=== PATIENT | male | born 1950 | race Caucasian/White ===

== ENCOUNTER 2018-07-25 20:10 | Emergency (ER) | payer BC, OTHER ==
[~2018-07-25] VITALS: Ht 188 cm; Wt 90.7 kg
[2018-07-25 20:10] VITALS: BP_SYST 165
--- NOTE | 2018-07-25 20:10 | NUR ---
Patient to ER bed 1 to gown for evaluation. Side rails up.
--- NOTE | 2018-07-25 20:11 | NUR ---
Pt complains of not being able to urinate since 4pm today. Pt states he has an appointment for surgery of the prostate tomorrow but cannot urinate. Pt denies N/V or fever. No other injuries/complaints per patient or noted.
--- NOTE | 2018-07-25 20:15 | NUR ---
ER Dr. Gutierrez at bedside examining patient.
--- NOTE | 2018-07-25 20:28 | NUR ---
# 16 FR conklin catheter with use of sterile technique. Immediate return of 900 ml clear yellow urine noted. changed urinary bag to leg bag as per Dr. Gutierrez's verbal orders. Pt tolerated well.
[2018-07-25] MEDS ORDERED: DOXYCYCLINE HYCLATE 100 MG CAPSULE PO ONE (20:30)
[2018-07-25] MEDS ORDERED: DOXYCYCLINE HYCLATE 100 MG CAPSULE ONE (20:42)
[2018-07-25 20:55] VITALS: BP_SYST 138
--- NOTE | 2018-07-25 20:55 | NUR ---
Patient given written and verbal discharge instructions and verbalizes understanding. ER MD discussed with patient the results and treatment provided. Patient in stable condition. ID arm band removed. No Rx given. Patient educated on pain management and to follow up with PMD. Pain Scale 0. Opportunity for questions provided and answered. Medication side effect fact sheet provided.
== END 2018-07-25 20:55 | disposition home or self-care (01) ==
LOC: SED 20:10
DX: R33.9 Retention of urine, unspecified (principal); R03.0 Elevated blood-pressure reading, without diagnosis of hypertension; Z88.0 Allergy status to penicillin; Z88.1 Allergy status to other antibiotic agents
CPT/HCPCS: 99284